=== PATIENT | female | born 1975 | race Caucasian/White ===

== ENCOUNTER 2016-12-28 02:43 | Emergency (ER) | payer OTHER ==
[~2016-12-28] VITALS: Ht 167.6 cm; Wt 68.2 kg
[~2016-12-28 02:43] MED LIST: BENZ0.5T6 PO; LITH300CRT PO; RISP3 PO; VITAD1000 PO
[2016-12-28 02:45] VITALS: BP 105/75
== END 2016-12-28 03:54 | disposition left against medical advice (07) ==
LOC: EMS 02:44
DX: Z76.0 Encounter for issue of repeat prescription (principal); Z53.21 Procedure and treatment not carried out due to patient leaving prior to being seen by health care provider

== ENCOUNTER 2017-01-15 15:52 | Emergency (ER) | payer OTHER ==
[~2017-01-15] VITALS: Ht 167.6 cm; Wt 63.6 kg
[2017-01-15 16:10] VITALS: BP 109/64
== END 2017-01-15 18:27 | disposition left against medical advice (07) ==
LOC: EMS 15:55
DX: Z76.0 Encounter for issue of repeat prescription (principal); F17.210 Nicotine dependence, cigarettes, uncomplicated; Z53.21 Procedure and treatment not carried out due to patient leaving prior to being seen by health care provider

== ENCOUNTER 2017-11-04 21:40 | Emergency (ER) | payer OTHER ==
[~2017-11-04 21:40] MED LIST changes: -LITH300CRT PO; -VITAD1000 PO
== END 2017-11-04 22:53 | disposition left against medical advice (07) ==
LOC: EMS 21:44
DX: Z53.21 Procedure and treatment not carried out due to patient leaving prior to being seen by health care provider (principal)

== ENCOUNTER 2017-11-05 04:17 | Emergency (ER) | payer OTHER ==
[~2017-11-05] VITALS: Ht 165.1 cm; Wt 63.6 kg
[2017-11-05 04:19] VITALS: BP 114/77
[2017-11-05 05:07] LABS: BASOPHILS # (AUTO) 0.06 K/uL (0.00-0.20); BASOPHILS % (AUTO) 0.7 % (0.0-2.0); EOSINOPHILS # (AUTO) 0.12 K/uL (0.00-0.70); EOSINOPHILS % (AUTO) 1.37 % (1.0-6.0); HEMATOCRIT 38.8 % (36-46); HEMOGLOBIN 12.8 g/dL (12.0-16.0); LYMPHOCYTES # (AUTO) 3.1 K/uL (1.0-4.8); LYMPHOCYTES % (AUTO) 36.1 % (22.0-44.0); MEAN CORPUSCULAR VOLUME 97 fL (80-100); MONOCYTES # (AUTO) 0.6 K/uL (0.1-1.0); NEUTROPHILS # (AUTO) 4.6 K/uL (1.8-7.7); NEUTROPHILS % (AUTO) 54.8 % (40.0-70.0); PLATELET COUNT (AUTO) 308 K/uL (150-450); RED CELL DISTRIBUTION WIDTH 13.3 % (11.5-14.5)
[2017-11-05 05:21] LABS: ANION GAP 6 mmol/L (8-16); CALCIUM, TOTAL 9.3 mg/dL (8.8-10.5); CARBON DIOXIDE 33 mmol/L (22-29); CHLORIDE 104 mmol/L (98-107); GLOMERULAR FILTR. RATE CALC > 60 mL/min (>60); GLUCOSE,RANDOM 102 mg/dL (70-110); POTASSIUM 3.7 mmol/L (3.5-5.1); SODIUM SERUM 143 mmol/L (136-145); UREA NITROGEN, BLOOD 10 mg/dL (7-18)
[2017-11-05 05:26] LABS: ALANINE AMINOTRANSFERASE 24 U/L (12-78); ALBUMIN 3.4 g/dL (3.4-5.0); ALKALINE PHOSPHATASE 64 U/L (46-116); ASPARTATE AMINOTRANSFERASE 16 U/L (15-37); BILIRUBIN,TOTAL 0.3 mg/dL (0.1-1.0); TOTAL PROTEIN, SERUM 6.7 g/dL (6.4-8.2)
== END 2017-11-05 10:02 | disposition left against medical advice (07) ==
LOC: EMS 04:18
DX: Z53.21 Procedure and treatment not carried out due to patient leaving prior to being seen by health care provider (principal)
CPT/HCPCS: 36415; 80053; 85025; G0480

== ENCOUNTER 2017-11-06 18:31 | Emergency (ER) | payer OTHER | END 2017-11-06 19:14 | disposition left against medical advice (07) | LOC: EMS 18:33 | DX: Z53.21 Procedure and treatment not carried out due to patient leaving prior to being seen by health care provider (principal) ==

== ENCOUNTER 2017-11-09 23:16 | Emergency (ER) | payer OTHER ==
[~2017-11-09] VITALS: Ht 172.7 cm; Wt 72.7 kg
[2017-11-09 23:26] VITALS: BP 135/78
== END 2017-11-10 00:25 | disposition home or self-care (01) ==
LOC: EMS 23:17
DX: M79.671 Pain in right foot (principal); M79.672 Pain in left foot; F25.9 Schizoaffective disorder, unspecified; F31.9 Bipolar disorder, unspecified; F17.210 Nicotine dependence, cigarettes, uncomplicated; Z59.0 Homelessness; Z76.0 Encounter for issue of repeat prescription; Z88.8 Allergy status to other drugs, medicaments and biological substances
CPT/HCPCS: 99281; 99406

== ENCOUNTER 2017-12-04 16:15 | Emergency (ER) | payer OTHER ==
[~2017-12-04] VITALS: Ht 167.6 cm; Wt 63.6 kg
[2017-12-04 17:10] VITALS: BP 111/70
== END 2017-12-04 17:43 | disposition home or self-care (01) ==
LOC: EMS 16:35
DX: Z76.0 Encounter for issue of repeat prescription (principal); F31.9 Bipolar disorder, unspecified; F20.9 Schizophrenia, unspecified; F17.210 Nicotine dependence, cigarettes, uncomplicated; Z88.8 Allergy status to other drugs, medicaments and biological substances; Z59.0 Homelessness
CPT/HCPCS: 99283

== ENCOUNTER 2017-12-15 15:19 | Emergency (ER) | payer OTHER ==
[~2017-12-15] VITALS: Ht 165.1 cm; Wt 63.6 kg
[2017-12-15] MEDS ORDERED: BENZ1TAB10 PO (16:04)
[2017-12-15 16:29] LABS: EOSINOPHILS % (AUTO) 0.8 % (1.0-6.0); HEMATOCRIT 31.7 % (36-46); HEMOGLOBIN 10.6 g/dL (12.0-16.0); LYMPHOCYTES % (AUTO) 25.2 % (22.0-44.0); MEAN CORPUSCULAR HEMOGLOBIN 30.5 pg (26.0-34.0); MEAN CORPUSCULAR HGB CONC 33.5 G/dL (31.0-37.0); MEAN CORPUSCULAR VOLUME 91 fL (80-100); MONOCYTES # (AUTO) 0.5 K/uL (0.1-1.0); NEUTROPHILS # (AUTO) 5.3 K/uL (1.8-7.7); PLATELET COUNT (AUTO) 279 K/uL (150-450); RED BLOOD CELL COUNT(AUTO) 3.49 MIL/uL (4.00-5.20); RED CELL DISTRIBUTION WIDTH 14.1 % (11.5-14.5)
[2017-12-15 16:37] LABS: ANION GAP 5 mmol/L (8-16); CALCIUM, TOTAL 8.8 mg/dL (8.8-10.5); CARBON DIOXIDE 31 mmol/L (22-29); CHLORIDE 103 mmol/L (98-107); GLOMERULAR FILTR. RATE CALC > 60 mL/min (>60); GLUCOSE,RANDOM 108 mg/dL (70-110); POTASSIUM 4.1 mmol/L (3.5-5.1); SODIUM SERUM 139 mmol/L (136-145); UREA NITROGEN, BLOOD 13 mg/dL (7-18)
[2017-12-15 19:21] VITALS: BP 113/71
== END 2017-12-15 19:23 | disposition home or self-care (01) ==
LOC: EMS 15:22
DX: D64.9 Anemia, unspecified (principal); F20.9 Schizophrenia, unspecified; F32.9 Major depressive disorder, single episode, unspecified; F17.210 Nicotine dependence, cigarettes, uncomplicated; Z59.0 Homelessness
CPT/HCPCS: 99284

== ENCOUNTER 2017-12-19 13:16 | Emergency (ER) | payer OTHER ==
[~2017-12-19] VITALS: Ht 165.1 cm; Wt 63.6 kg
[~2017-12-19 13:16] MED LIST changes: -BENZ0.5T6 PO; +BENZ1TAB10 PO
[2017-12-19] MEDS ORDERED: BENZTROPINE MESYLATE 1 MG TABLET PO ONE (17:30)
[2017-12-19] MEDS ORDERED: RisperiDONE 1 MG TABLET PO ONE (17:30)
[2017-12-19 17:51] VITALS: BP 110/68
== END 2017-12-19 17:53 | disposition home or self-care (01) ==
LOC: EMS 13:18
DX: F20.9 Schizophrenia, unspecified (principal); F31.9 Bipolar disorder, unspecified; F17.210 Nicotine dependence, cigarettes, uncomplicated; Z76.0 Encounter for issue of repeat prescription; Z88.8 Allergy status to other drugs, medicaments and biological substances; Z59.0 Homelessness
CPT/HCPCS: 99284; 99406

== ENCOUNTER 2017-12-24 23:52 | Emergency (ER) | payer OTHER ==
[~2017-12-24] VITALS: Ht 165.1 cm; Wt 63.0 kg
[2017-12-25 00:58] LABS: HEMATOCRIT 33.3 % (36-46); HEMOGLOBIN 11.1 g/dL (12.0-16.0); LYMPHOCYTES # (AUTO) 2.1 K/uL (1.0-4.8); LYMPHOCYTES % (AUTO) 25.3 % (22.0-44.0); MEAN CORPUSCULAR HEMOGLOBIN 29.9 pg (26.0-34.0); MEAN CORPUSCULAR HGB CONC 33.3 G/dL (31.0-37.0); MEAN CORPUSCULAR VOLUME 90 fL (80-100); MONOCYTES # (AUTO) 0.7 K/uL (0.1-1.0); MONOCYTES % (AUTO) 8.5 % (2.0-9.0); NEUTROPHILS # (AUTO) 5.3 K/uL (1.8-7.7); NEUTROPHILS % (AUTO) 64.2 % (40.0-70.0); PLATELET COUNT (AUTO) 384 K/uL (150-450); RED BLOOD CELL COUNT(AUTO) 3.71 MIL/uL (4.00-5.20)
[2017-12-25 01:15] LABS: ANION GAP 7 mmol/L (8-16); CALCIUM, TOTAL 9.7 mg/dL (8.8-10.5); CARBON DIOXIDE 30 mmol/L (22-29); CHLORIDE 104 mmol/L (98-107); CREATININE 0.91 mg/dL (0.60-1.30); GLOMERULAR FILTR. RATE CALC > 60 mL/min (>60); GLUCOSE,RANDOM 88 mg/dL (70-110); POTASSIUM 3.8 mmol/L (3.5-5.1); SODIUM SERUM 141 mmol/L (136-145); UREA NITROGEN, BLOOD 15 mg/dL (7-18)
[2017-12-25 01:26] LABS: ALANINE AMINOTRANSFERASE 26 U/L (12-78); ALKALINE PHOSPHATASE 56 U/L (46-116); ASPARTATE AMINOTRANSFERASE 30 U/L (15-37); BILIRUBIN,TOTAL 0.5 mg/dL (0.1-1.0); TOTAL PROTEIN, SERUM 7.5 g/dL (6.4-8.2)
[2017-12-25] MEDS ORDERED: LORazepam 2 MG TABLET PO ONE (01:45)
[2017-12-25] MEDS ORDERED: RisperiDONE 1 MG TABLET PO ONE (01:45)
[2017-12-25 04:00] VITALS: BP 127/77
== END 2017-12-25 04:30 | disposition home or self-care (01) ==
LOC: EMS 23:53
DX: F20.0 Paranoid schizophrenia (principal); F32.9 Major depressive disorder, single episode, unspecified; I10 Essential (primary) hypertension; F17.210 Nicotine dependence, cigarettes, uncomplicated; Z59.0 Homelessness; Z79.899 Other long term (current) drug therapy
CPT/HCPCS: 36415; 80053; 84703; 85025; 99284; 99406; G0480

== ENCOUNTER 2018-01-04 20:25 | Emergency (ER) | payer OTHER | END 2018-01-04 21:00 | disposition left against medical advice (07) | LOC: EMS 20:26 | DX: Z53.21 Procedure and treatment not carried out due to patient leaving prior to being seen by health care provider (principal) ==

== ENCOUNTER 2018-01-05 20:42 | Emergency (ER) | payer OTHER ==
[~2018-01-05] VITALS: Ht 167.6 cm; Wt 63.6 kg
[2018-01-05 21:13] LABS: EOSINOPHILS % (AUTO) 2.2 % (1.0-6.0); HEMATOCRIT 33.9 % (36-46); HEMOGLOBIN 11.1 g/dL (12.0-16.0); LYMPHOCYTES # (AUTO) 2.2 K/uL (1.0-4.8); LYMPHOCYTES % (AUTO) 21.8 % (22.0-44.0); MEAN CORPUSCULAR HEMOGLOBIN 28.9 pg (26.0-34.0); MEAN CORPUSCULAR HGB CONC 32.7 G/dL (31.0-37.0); MEAN CORPUSCULAR VOLUME 89 fL (80-100); MONOCYTES # (AUTO) 0.8 K/uL (0.1-1.0); MONOCYTES % (AUTO) 8.2 % (2.0-9.0); NEUTROPHILS # (AUTO) 6.7 K/uL (1.8-7.7); NEUTROPHILS % (AUTO) 66.8 % (40.0-70.0); PLATELET COUNT (AUTO) 389 K/uL (150-450); RED BLOOD CELL COUNT(AUTO) 3.82 MIL/uL (4.00-5.20); RED CELL DISTRIBUTION WIDTH 14.3 % (11.5-14.5)
[2018-01-05 21:23] LABS: ANION GAP 6 mmol/L (8-16); CALCIUM, TOTAL 9.7 mg/dL (8.8-10.5); CARBON DIOXIDE 31 mmol/L (22-29); CHLORIDE 102 mmol/L (98-107); CREATININE 0.68 mg/dL (0.60-1.30); GLOMERULAR FILTR. RATE CALC > 60 mL/min (>60); GLUCOSE,RANDOM 96 mg/dL (70-110); POTASSIUM 4.1 mmol/L (3.5-5.1); SODIUM SERUM 139 mmol/L (136-145); UREA NITROGEN, BLOOD 11 mg/dL (7-18)
[2018-01-05 21:30] LABS: ALANINE AMINOTRANSFERASE 36 U/L (12-78); ALBUMIN 3.2 g/dL (3.4-5.0); ALKALINE PHOSPHATASE 84 U/L (46-116); ASPARTATE AMINOTRANSFERASE 25 U/L (15-37); BILIRUBIN,TOTAL 0.2 mg/dL (0.1-1.0); TOTAL PROTEIN, SERUM 7.4 g/dL (6.4-8.2)
[2018-01-06] MEDS ORDERED: BENZTROPINE MESYLATE 2 MG TABLET PO ONE (00:30)
[2018-01-06] MEDS ORDERED: RisperiDONE 1 MG TABLET PO ONE (00:30)
[2018-01-06 00:45] VITALS: BP 111/66
== END 2018-01-06 01:34 | disposition home or self-care (01) ==
LOC: EMS 20:43
DX: F41.9 Anxiety disorder, unspecified (principal); F20.0 Paranoid schizophrenia; F17.210 Nicotine dependence, cigarettes, uncomplicated; F31.9 Bipolar disorder, unspecified; F20.9 Schizophrenia, unspecified; Z59.0 Homelessness; Z88.8 Allergy status to other drugs, medicaments and biological substances
CPT/HCPCS: 36415; 80053; 85025; 99284; 99406; G0480

== ENCOUNTER 2018-01-06 07:43 | Emergency (ER) | payer OTHER ==
[~2018-01-06] VITALS: Ht 165.1 cm; Wt 63.6 kg
[2018-01-06 07:45] VITALS: BP 99/61
== END 2018-01-06 08:13 | disposition left against medical advice (07) ==
LOC: EMS 07:46
DX: Z00.8 Encounter for other general examination (principal); F31.9 Bipolar disorder, unspecified; F20.9 Schizophrenia, unspecified; F17.210 Nicotine dependence, cigarettes, uncomplicated; Z53.21 Procedure and treatment not carried out due to patient leaving prior to being seen by health care provider

== ENCOUNTER 2018-02-02 21:47 | Emergency (ER) | payer OTHER ==
[~2018-02-02] VITALS: Ht 165.1 cm; Wt 63.6 kg
[2018-02-02] MEDS ORDERED: ACETAMINOPHEN 500 MG TABLET PO ONE (22:15)
[2018-02-02] MEDS ORDERED: RISP0.252 PO (22:38)
[2018-02-02] MEDS ORDERED: RISP.5 PO (22:39)
[2018-02-02] MEDS ORDERED: BENZ1TAB10 PO (22:39)
[2018-02-02] MEDS ORDERED: RISP1 PO (22:46)
[2018-02-02] MEDS ORDERED: BENZ0.5T44 PO (22:46)
[2018-02-02 22:52] VITALS: BP 100/60
== END 2018-02-02 22:54 | disposition home or self-care (01) ==
LOC: EMS 21:48
DX: R51 Headache (principal); F20.9 Schizophrenia, unspecified; F17.210 Nicotine dependence, cigarettes, uncomplicated; F31.9 Bipolar disorder, unspecified; Z76.0 Encounter for issue of repeat prescription; Z59.0 Homelessness; Z88.8 Allergy status to other drugs, medicaments and biological substances
CPT/HCPCS: 99283

== ENCOUNTER 2018-02-09 03:03 | Emergency (ER) | payer OTHER ==
[~2018-02-09] VITALS: Ht 165.1 cm; Wt 64.0 kg
[~2018-02-09 03:03] MED LIST changes: +BENZ0.5T44 PO; -BENZ1TAB10 PO; +RISP1 PO; -RISP3 PO
[2018-02-09 03:11] VITALS: BP 109/67
[2018-02-09] MEDS ORDERED: RisperiDONE 1 MG TABLET PO ONE (05:00)
== END 2018-02-09 05:36 | disposition home or self-care (01) ==
LOC: EMS 03:04
DX: F20.0 Paranoid schizophrenia (principal); F15.10 Other stimulant abuse, uncomplicated; F17.210 Nicotine dependence, cigarettes, uncomplicated; F31.9 Bipolar disorder, unspecified; F20.9 Schizophrenia, unspecified; Z59.0 Homelessness; Z88.8 Allergy status to other drugs, medicaments and biological substances
CPT/HCPCS: 99284; 99406

== ENCOUNTER 2018-02-10 22:33 | Emergency (ER) | payer OTHER ==
[~2018-02-10] VITALS: Ht 165.1 cm; Wt 64.6 kg
[2018-02-10 22:43] VITALS: BP 118/60
== END 2018-02-11 00:30 | disposition left against medical advice (07) ==
LOC: EMS 22:34
DX: F29 Unspecified psychosis not due to a substance or known physiological condition (principal); F31.9 Bipolar disorder, unspecified; F20.9 Schizophrenia, unspecified; F17.210 Nicotine dependence, cigarettes, uncomplicated; Z53.21 Procedure and treatment not carried out due to patient leaving prior to being seen by health care provider

== ENCOUNTER 2018-02-12 02:25 | Emergency (ER) | payer OTHER ==
[~2018-02-12] VITALS: Ht 172.7 cm; Wt 59.1 kg
[2018-02-12 03:14] VITALS: BP 121/86
== END 2018-02-12 03:53 | disposition home or self-care (01) ==
LOC: EMS 02:26
DX: F20.0 Paranoid schizophrenia (principal); Z59.0 Homelessness; F17.210 Nicotine dependence, cigarettes, uncomplicated; F32.9 Major depressive disorder, single episode, unspecified; Z76.0 Encounter for issue of repeat prescription
CPT/HCPCS: 99283; 99406

== ENCOUNTER 2018-02-16 04:01 | Emergency (ER) | payer OTHER ==
[~2018-02-16] VITALS: Ht 172.7 cm; Wt 63.6 kg
[2018-02-16 04:48] VITALS: BP 126/89
== END 2018-02-16 05:24 | disposition home or self-care (01) ==
LOC: EMS 04:04
DX: F20.9 Schizophrenia, unspecified (principal); F31.9 Bipolar disorder, unspecified; F17.210 Nicotine dependence, cigarettes, uncomplicated; Z59.0 Homelessness; Z88.8 Allergy status to other drugs, medicaments and biological substances
CPT/HCPCS: 99284

== ENCOUNTER 2018-02-17 02:59 | Emergency (ER) | payer OTHER ==
[~2018-02-17] VITALS: Ht 167.6 cm; Wt 61.4 kg
[2018-02-17 04:25] LABS: AMPHET/METH SCREEN,URINE POSITIVE (NEGATIVE); BARBITURATE SCREEN, URINE NEGATIVE (NEGATIVE); BENZODIAZEPINES SCREEN,URINE NEGATIVE (NEGATIVE); CANNABINOID SCREEN,URINE NEGATIVE (NEGATIVE); COCAINE SCREEN,URINE NEGATIVE (NEGATIVE); METHADONE SCREEN, URINE NEGATIVE (NEGATIVE); OPIATE SCREEN,URINE NEGATIVE (NEGATIVE)
[2018-02-17 04:28] LABS: PHENCYCLIDINE SCREEN,URINE NEGATIVE (NEGATIVE)
[2018-02-17 05:04] VITALS: BP 114/79
== END 2018-02-17 05:18 | disposition home or self-care (01) ==
LOC: EMS 03:00
DX: F20.0 Paranoid schizophrenia (principal); F32.9 Major depressive disorder, single episode, unspecified; F15.10 Other stimulant abuse, uncomplicated; F17.210 Nicotine dependence, cigarettes, uncomplicated; Z59.0 Homelessness; Z88.8 Allergy status to other drugs, medicaments and biological substances
CPT/HCPCS: 99284; 99406

== ENCOUNTER 2018-02-21 01:24 | Emergency (ER) | payer OTHER ==
[~2018-02-21] VITALS: Ht 167.6 cm; Wt 63.6 kg
[2018-02-21 01:29] VITALS: BP 104/75
== END 2018-02-21 02:18 | disposition left against medical advice (07) ==
LOC: EMS 01:26
DX: M53.9 Dorsopathy, unspecified (principal); F17.210 Nicotine dependence, cigarettes, uncomplicated; Z59.0 Homelessness; Z88.8 Allergy status to other drugs, medicaments and biological substances; Z53.21 Procedure and treatment not carried out due to patient leaving prior to being seen by health care provider

== ENCOUNTER 2018-02-22 02:02 | Emergency (ER) | payer OTHER ==
[~2018-02-22] VITALS: Ht 165.1 cm; Wt 68.2 kg
[2018-02-22 04:36] VITALS: BP 116/86
== END 2018-02-22 04:36 | disposition home or self-care (01) ==
LOC: EMS 02:03
DX: F25.9 Schizoaffective disorder, unspecified (principal); F31.9 Bipolar disorder, unspecified; F17.210 Nicotine dependence, cigarettes, uncomplicated
CPT/HCPCS: 99283

== ENCOUNTER 2018-03-01 21:19 | Emergency (ER) | payer OTHER ==
[~2018-03-01] VITALS: Ht 165.1 cm; Wt 68.2 kg
[2018-03-01 21:27] VITALS: BP 127/68
== END 2018-03-01 22:12 | disposition left against medical advice (07) ==
LOC: EMS 21:20
DX: Z00.8 Encounter for other general examination (principal); F31.9 Bipolar disorder, unspecified; F20.9 Schizophrenia, unspecified; F17.210 Nicotine dependence, cigarettes, uncomplicated; Z88.8 Allergy status to other drugs, medicaments and biological substances; Z53.21 Procedure and treatment not carried out due to patient leaving prior to being seen by health care provider

== ENCOUNTER 2018-03-07 02:15 | Emergency (ER) | payer OTHER | END 2018-03-07 02:58 | disposition left against medical advice (07) | LOC: EMS 02:16 | DX: Z00.8 Encounter for other general examination (principal); Z53.21 Procedure and treatment not carried out due to patient leaving prior to being seen by health care provider ==

== ENCOUNTER 2018-03-08 03:46 | Emergency (ER) | payer OTHER ==
[~2018-03-08] VITALS: Ht 172.7 cm; Wt 63.6 kg
[2018-03-08 05:13] VITALS: BP 132/76
== END 2018-03-08 05:56 | disposition home or self-care (01) ==
LOC: EMS 03:46
DX: F20.0 Paranoid schizophrenia (principal); F31.9 Bipolar disorder, unspecified; F17.210 Nicotine dependence, cigarettes, uncomplicated; Z76.0 Encounter for issue of repeat prescription; Z88.8 Allergy status to other drugs, medicaments and biological substances
CPT/HCPCS: 99283

== ENCOUNTER 2018-03-26 05:18 | Emergency (ER) | payer OTHER ==
[~2018-03-26] VITALS: Ht 165.1 cm; Wt 59.1 kg
[2018-03-26 05:21] VITALS: BP 140/80
== END 2018-03-26 06:04 | disposition left against medical advice (07) ==
LOC: EMS 05:19
DX: Z76.0 Encounter for issue of repeat prescription (principal); Z53.21 Procedure and treatment not carried out due to patient leaving prior to being seen by health care provider

== ENCOUNTER 2018-03-27 00:23 | Emergency (ER) | payer OTHER ==
[~2018-03-27] VITALS: Ht 165.1 cm; Wt 54.5 kg
[2018-03-27 01:30] VITALS: BP 125/61
== END 2018-03-27 02:11 | disposition home or self-care (01) ==
LOC: EMS 00:25
DX: F20.0 Paranoid schizophrenia (principal); F31.9 Bipolar disorder, unspecified; F17.210 Nicotine dependence, cigarettes, uncomplicated; Z76.0 Encounter for issue of repeat prescription; Z88.8 Allergy status to other drugs, medicaments and biological substances
CPT/HCPCS: 99283

== ENCOUNTER 2018-04-10 13:59 | Emergency (ER) | payer OTHER ==
[~2018-04-10] VITALS: Ht 162.6 cm; Wt 63.6 kg
[2018-04-10 15:40] VITALS: BP 98/65
== END 2018-04-10 16:07 | disposition home or self-care (01) ==
LOC: EMS 14:00
DX: F29 Unspecified psychosis not due to a substance or known physiological condition (principal); F17.210 Nicotine dependence, cigarettes, uncomplicated; F31.9 Bipolar disorder, unspecified; F20.9 Schizophrenia, unspecified; Z76.0 Encounter for issue of repeat prescription; Z88.8 Allergy status to other drugs, medicaments and biological substances
CPT/HCPCS: 99283

== ENCOUNTER 2018-04-19 22:56 | Emergency (ER) | payer OTHER | END 2018-04-20 00:22 | disposition left against medical advice (07) | LOC: EMS 22:57 | DX: Z53.21 Procedure and treatment not carried out due to patient leaving prior to being seen by health care provider (principal) ==

== ENCOUNTER 2018-05-07 12:59 | Emergency (ER) | payer OTHER | END 2018-05-07 14:08 | disposition left against medical advice (07) | LOC: EMS 13:01 | DX: Z53.21 Procedure and treatment not carried out due to patient leaving prior to being seen by health care provider (principal) ==

== ENCOUNTER 2018-05-08 01:37 | Emergency (ER) | payer OTHER ==
[~2018-05-08] VITALS: Ht 167.6 cm; Wt 59.1 kg
[2018-05-08 01:41] VITALS: BP 122/72
== END 2018-05-08 04:30 | disposition left against medical advice (07) ==
LOC: EMS 01:39
DX: Z76.0 Encounter for issue of repeat prescription (principal); Z53.21 Procedure and treatment not carried out due to patient leaving prior to being seen by health care provider

== ENCOUNTER 2018-05-08 07:30 | Emergency (ER) | payer OTHER ==
[~2018-05-08] VITALS: Ht 165.1 cm; Wt 59.1 kg
[2018-05-08 12:05] VITALS: BP 128/70
== END 2018-05-08 12:25 | disposition home or self-care (01) ==
LOC: EMS 07:32
DX: F25.9 Schizoaffective disorder, unspecified (principal); F31.9 Bipolar disorder, unspecified; F17.210 Nicotine dependence, cigarettes, uncomplicated; Z76.0 Encounter for issue of repeat prescription; Z88.8 Allergy status to other drugs, medicaments and biological substances
CPT/HCPCS: 99283

== ENCOUNTER 2018-05-27 03:17 | Emergency (ER) | payer OTHER ==
[~2018-05-27] VITALS: Ht 165.1 cm; Wt 54.0 kg
[2018-05-27 03:30] VITALS: BP 101/67
== END 2018-05-27 04:14 | disposition left against medical advice (07) ==
LOC: EMS 03:18
DX: F22 Delusional disorders (principal); F31.9 Bipolar disorder, unspecified; F20.9 Schizophrenia, unspecified; F17.210 Nicotine dependence, cigarettes, uncomplicated; Z53.21 Procedure and treatment not carried out due to patient leaving prior to being seen by health care provider

== ENCOUNTER 2018-06-03 03:22 | Emergency (ER) | payer OTHER ==
[~2018-06-03] VITALS: Ht 172.7 cm; Wt 81.8 kg
[2018-06-03 03:24] VITALS: BP 138/64
[2018-06-03] MEDS: BENZTROPINE MESYLATE 0.5 MG TABLET PO ONE ×2 (04:47→04:49)
[2018-06-03] MEDS: RisperiDONE 1 MG TABLET PO ONE ×2 (04:47→04:49)
== END 2018-06-03 04:54 | disposition home or self-care (01) ==
LOC: EMS 03:23
DX: F25.9 Schizoaffective disorder, unspecified (principal); F31.9 Bipolar disorder, unspecified; F15.10 Other stimulant abuse, uncomplicated; F17.210 Nicotine dependence, cigarettes, uncomplicated; Z88.8 Allergy status to other drugs, medicaments and biological substances; Z59.0 Homelessness
CPT/HCPCS: 99284; 99406

== ENCOUNTER 2018-06-07 06:43 | Emergency (ER) | payer OTHER | END 2018-06-07 06:50 | disposition left against medical advice (07) | LOC: EMS 06:44 | DX: Z76.0 Encounter for issue of repeat prescription (principal); Z53.21 Procedure and treatment not carried out due to patient leaving prior to being seen by health care provider ==

== ENCOUNTER 2018-06-17 07:11 | Emergency (ER) | payer OTHER | END 2018-06-17 07:39 | disposition left against medical advice (07) | LOC: EMS 07:13 | DX: Z00.00 Encounter for general adult medical examination without abnormal findings (principal); Z53.21 Procedure and treatment not carried out due to patient leaving prior to being seen by health care provider ==

== ENCOUNTER 2018-07-13 18:04 | Emergency (ER) | payer OTHER | END 2018-07-13 18:13 | disposition left against medical advice (07) | LOC: EMS 18:05 | DX: Z00.00 Encounter for general adult medical examination without abnormal findings (principal); Z53.21 Procedure and treatment not carried out due to patient leaving prior to being seen by health care provider ==

== ENCOUNTER 2018-07-29 22:37 | Emergency (ER) | payer OTHER ==
[~2018-07-29] VITALS: Ht 172.7 cm; Wt 79.0 kg
[2018-07-30 03:56] VITALS: BP 114/67
== END 2018-07-30 04:41 | disposition left against medical advice (07) ==
LOC: EMS 22:38
DX: M79.646 Pain in unspecified finger(s) (principal); Z53.21 Procedure and treatment not carried out due to patient leaving prior to being seen by health care provider

== ENCOUNTER 2018-08-01 18:47 | Emergency (ER) | payer OTHER | END 2018-08-01 19:03 | disposition left against medical advice (07) | LOC: EMS 18:48 | DX: R50.9 Fever, unspecified (principal); Z53.21 Procedure and treatment not carried out due to patient leaving prior to being seen by health care provider ==

== ENCOUNTER 2018-08-03 21:53 | Emergency (ER) | payer OTHER ==
[~2018-08-03] VITALS: Ht 172.7 cm; Wt 79.0 kg
[2018-08-03 22:27] LABS: AMPHET/METH SCREEN,URINE POSITIVE (NEGATIVE); BARBITURATE SCREEN, URINE NEGATIVE (NEGATIVE); BENZODIAZEPINES SCREEN,URINE NEGATIVE (NEGATIVE); CANNABINOID SCREEN,URINE NEGATIVE (NEGATIVE); COCAINE SCREEN,URINE NEGATIVE (NEGATIVE); METHADONE SCREEN, URINE NEGATIVE (NEGATIVE); OPIATE SCREEN,URINE NEGATIVE (NEGATIVE); PHENCYCLIDINE SCREEN,URINE NEGATIVE (NEGATIVE)
[2018-08-03] MEDS ORDERED: HALOPERIDOL LACTATE 5 MG/ML VIAL ONE (22:56)
[2018-08-03] MEDS ORDERED: DiphenhydrAMINE HCL 50 MG/ML VIAL IM ONE (23:00)
[2018-08-03] MEDS ORDERED: LORazepam 2 MG/ML VIAL IM ONE (23:00)
[2018-08-03] MEDS ORDERED: HALOPERIDOL LACTATE 5 MG/ML VIAL IM ONE (23:00)
[2018-08-03 23:42] LABS: BASOPHILS % (AUTO) 0.6 % (0.0-2.0); EOSINOPHILS % (AUTO) 0.4 % (1.0-6.0); HEMATOCRIT 35.4 % (36-46); LYMPHOCYTES % (AUTO) 19.2 % (22.0-44.0); MEAN CORPUSCULAR HEMOGLOBIN 31.1 pg (26.0-34.0); MEAN CORPUSCULAR HGB CONC 33.9 G/dL (31.0-37.0); MEAN CORPUSCULAR VOLUME 92 fL (80-100); MONOCYTES # (AUTO) 0.3 K/uL (0.1-1.0); MONOCYTES % (AUTO) 6.6 % (2.0-9.0); NEUTROPHILS # (AUTO) 3.9 K/uL (1.8-7.7); NEUTROPHILS % (AUTO) 73.2 % (40.0-70.0); PLATELET COUNT (AUTO) 251 K/uL (150-450); RED BLOOD CELL COUNT(AUTO) 3.86 MIL/uL (4.00-5.20); RED CELL DISTRIBUTION WIDTH 14.6 % (11.5-14.5)
[2018-08-04 00:04] LABS: ANION GAP 7 mmol/L (8-16); CARBON DIOXIDE 29 mmol/L (22-29); CHLORIDE 103 mmol/L (98-107); CREATININE 0.78 mg/dL (0.60-1.30); GLOMERULAR FILTR. RATE CALC > 60 mL/min (>60); GLUCOSE,RANDOM 80 mg/dL (70-110); POTASSIUM 3.6 mmol/L (3.5-5.1); SODIUM SERUM 139 mmol/L (136-145); UREA NITROGEN, BLOOD 15 mg/dL (7-18)
[2018-08-04 00:16] LABS: ALANINE AMINOTRANSFERASE 24 U/L (12-78); ALBUMIN 3.1 g/dL (3.4-5.0); ALKALINE PHOSPHATASE 57 U/L (46-116); ASPARTATE AMINOTRANSFERASE 28 U/L (15-37); BILIRUBIN,TOTAL 0.2 mg/dL (0.1-1.0); HCG,QUANTITATIVE < 1 mIU/mL (0-6); TOTAL PROTEIN, SERUM 6.8 g/dL (6.4-8.2)
[2018-08-04 08:08] VITALS: BP 120/64
== END 2018-08-04 08:10 | disposition home or self-care (01) ==
LOC: EMS 21:55
DX: F15.159 Other stimulant abuse with stimulant-induced psychotic disorder, unspecified (principal); Z59.0 Homelessness; F17.210 Nicotine dependence, cigarettes, uncomplicated; F31.9 Bipolar disorder, unspecified; F20.9 Schizophrenia, unspecified; Z79.899 Other long term (current) drug therapy; Z88.8 Allergy status to other drugs, medicaments and biological substances
CPT/HCPCS: 36415; 80053; 80307; 84702; 84703; 85025; 96372; 99285; G0480; J1200; J1630; J2060

== ENCOUNTER 2018-08-12 18:05 | Emergency (ER) | payer OTHER ==
[~2018-08-12] VITALS: Ht 167.6 cm; Wt 60.0 kg
[2018-08-12] MEDS ORDERED: DiphenhydrAMINE HCL 50 MG/ML VIAL IM ONE (18:15)
[2018-08-12] MEDS ORDERED: LORazepam 2 MG/ML VIAL IM ONE (18:15)
[2018-08-12] MEDS ORDERED: HALOPERIDOL LACTATE 5 MG/ML VIAL IM ONE (18:15)
[2018-08-12 18:41] LABS: BASOPHILS % (AUTO) 0.9 % (0.0-2.0); HEMATOCRIT 34.8 % (36-46); HEMOGLOBIN 11.9 g/dL (12.0-16.0); LYMPHOCYTES # (AUTO) 2.5 K/uL (1.0-4.8); LYMPHOCYTES % (AUTO) 31.2 % (22.0-44.0); MEAN CORPUSCULAR HEMOGLOBIN 31.6 pg (26.0-34.0); MEAN CORPUSCULAR HGB CONC 34.2 G/dL (31.0-37.0); MEAN CORPUSCULAR VOLUME 93 fL (80-100); MONOCYTES # (AUTO) 0.6 K/uL (0.1-1.0); MONOCYTES % (AUTO) 7.7 % (2.0-9.0); NEUTROPHILS # (AUTO) 4.7 K/uL (1.8-7.7); NEUTROPHILS % (AUTO) 59.2 % (40.0-70.0); PLATELET COUNT (AUTO) 357 K/uL (150-450); RED BLOOD CELL COUNT(AUTO) 3.75 MIL/uL (4.00-5.20); RED CELL DISTRIBUTION WIDTH 14.9 % (11.5-14.5)
[2018-08-12 18:54] LABS: ANION GAP 3 mmol/L (8-16); CARBON DIOXIDE 31 mmol/L (22-29); CHLORIDE 107 mmol/L (98-107); CREATININE 1.09 mg/dL (0.60-1.30); GLOMERULAR FILTR. RATE CALC 55 mL/min (>60); GLUCOSE,RANDOM 112 mg/dL (70-110); POTASSIUM 3.6 mmol/L (3.5-5.1); SODIUM SERUM 141 mmol/L (136-145); UREA NITROGEN, BLOOD 15 mg/dL (7-18)
[2018-08-12 18:59] LABS: ALANINE AMINOTRANSFERASE 21 U/L (12-78); ALBUMIN 3.2 g/dL (3.4-5.0); ALKALINE PHOSPHATASE 56 U/L (46-116); ASPARTATE AMINOTRANSFERASE 18 U/L (15-37); BILIRUBIN,TOTAL 0.2 mg/dL (0.1-1.0); TOTAL PROTEIN, SERUM 6.6 g/dL (6.4-8.2)
[2018-08-12 20:24] LABS: HCG,QUANTITATIVE < 1 mIU/mL (0-6)
[2018-08-13 05:03] VITALS: BP 112/67
== END 2018-08-13 05:07 | disposition home or self-care (01) ==
LOC: EMS 18:06
DX: F20.9 Schizophrenia, unspecified (principal); F31.9 Bipolar disorder, unspecified; F17.210 Nicotine dependence, cigarettes, uncomplicated; Z88.8 Allergy status to other drugs, medicaments and biological substances; Z59.0 Homelessness
CPT/HCPCS: 36415; 80053; 84702; 85025; 96372; 99291; G0480; J1200; J1630; J2060

== ENCOUNTER 2019-04-12 21:03 | Emergency (ER) | payer MEDICAID ==
[~2019-04-12] VITALS: Ht 165.1 cm; Wt 68.2 kg
[~2019-04-12 21:03] MED LIST changes: -BENZ0.5T44 PO; +BENZ1TAB10 PO; +BUPR75 PO; +RISP2 PO
[2019-04-12 23:25] VITALS: BP 122/64
== END 2019-04-12 23:32 | disposition home or self-care (01) ==
LOC: EMS 21:05
DX: F20.0 Paranoid schizophrenia (principal); F17.210 Nicotine dependence, cigarettes, uncomplicated; F31.9 Bipolar disorder, unspecified; F12.90 Cannabis use, unspecified, uncomplicated; Z59.0 Homelessness; Z88.8 Allergy status to other drugs, medicaments and biological substances
CPT/HCPCS: 99406

== ENCOUNTER 2022-09-17 14:17 | Emergency (ER) | payer MEDICAID ==
[~2022-09-17] VITALS: Ht 167.6 cm; Wt 75.0 kg
[2022-09-17 16:35] LABS: BASOPHILS % (AUTO) 0.7 % (0.0-2.0); EOSINOPHILS % (AUTO) 1.7 % (1.0-6.0); HEMATOCRIT 30.3 % (36-46); HEMOGLOBIN 9.5 g/dL (12.0-16.0); LYMPHOCYTES # (AUTO) 2.1 K/uL (1.0-4.8); LYMPHOCYTES % (AUTO) 21.2 % (22.0-44.0); MEAN CORPUSCULAR HEMOGLOBIN 25.8 pg (26.0-34.0); MEAN CORPUSCULAR HGB CONC 31.4 G/dL (31.0-37.0); MEAN CORPUSCULAR VOLUME 82 fL (80-100); MONOCYTES # (AUTO) 0.6 K/uL (0.1-1.0); MONOCYTES % (AUTO) 6.5 % (2.0-9.0); NEUTROPHILS % (AUTO) 69.9 % (40.0-70.0); PLATELET COUNT (AUTO) 409 K/uL (150-450); RED BLOOD CELL COUNT(AUTO) 3.69 MIL/uL (4.00-5.20); RED CELL DISTRIBUTION WIDTH 17.2 % (11.5-14.5)
[2022-09-17 16:40] LABS: COVID AG,FIA SOURCE NASOPHARYNGEAL
[2022-09-17 16:49] VITALS: BP 89/60
[2022-09-17 16:54] LABS: ANION GAP 6 mmol/L (8-16); CALCIUM, TOTAL 8.8 mg/dL (8.8-10.5); CARBON DIOXIDE 30 mmol/L (22-29); CHLORIDE 103 mmol/L (98-107); CREATININE 0.75 mg/dL (0.60-1.30); GLOMERULAR FILTR. RATE CALC > 60 mL/min (>60); GLUCOSE,RANDOM 106 mg/dL (70-110); POTASSIUM 3.3 mmol/L (3.5-5.1); SODIUM SERUM 139 mmol/L (136-145); UREA NITROGEN, BLOOD 6 mg/dL (7-18)
[2022-09-17 16:58] LABS: ALANINE AMINOTRANSFERASE 29 U/L (12-78); ALBUMIN 2.5 g/dL (3.4-5.0); ALKALINE PHOSPHATASE 80 U/L (46-116); ASPARTATE AMINOTRANSFERASE 24 U/L (15-37); BILIRUBIN,TOTAL 0.2 mg/dL (0.1-1.0); HCG,QUANTITATIVE < 1 mIU/mL (0-6); TOTAL PROTEIN, SERUM 5.6 g/dL (6.4-8.2)
[2022-09-17] MEDS: POTASSIUM CHLORIDE 20 MEQ ER TABLET PO ONE (17:20)
[2022-09-21] MEDS ORDERED: PANT-31 PO (12:24)
== END 2022-09-17 17:47 | disposition home or self-care (01) ==
LOC: EMS 14:19
DX: F20.9 Schizophrenia, unspecified (principal); J45.909 Unspecified asthma, uncomplicated; F31.9 Bipolar disorder, unspecified; J44.9 Chronic obstructive pulmonary disease, unspecified; F17.210 Nicotine dependence, cigarettes, uncomplicated; F12.90 Cannabis use, unspecified, uncomplicated; F15.90 Other stimulant use, unspecified, uncomplicated; Z59.00 Homelessness unspecified; Z20.822 Contact with and (suspected) exposure to COVID-19
CPT/HCPCS: 99283; 87426; 80053; 84702; 85025; 36415; G0480; 99284

== ENCOUNTER 2022-10-02 10:55 | Emergency (ER) | payer MEDICAID ==
[~2022-10-02] VITALS: Ht 165.1 cm; Wt 72.7 kg
[~2022-10-02 10:55] MED LIST changes: -BENZ1TAB10 PO; -BUPR75 PO; +PANT-31 PO; -RISP1 PO; -RISP2 PO
[2022-10-02 11:49] LABS: COVID AG,FIA SOURCE NASOPHARYNGEAL
[2022-10-02 12:24] LABS: INFLUENZA TYPE A NEGATIVE FOR TYPE A (NEGATIVE); INFLUENZA TYPE B NEGATIVE FOR TYPE B (NEGATIVE)
[2022-10-02 12:48] LABS: BASOPHILS % (AUTO) 0.8 % (0.0-2.0); EOSINOPHILS % (AUTO) 1.5 % (1.0-6.0); HEMATOCRIT 26.9 % (36-46); HEMOGLOBIN 8.6 g/dL (12.0-16.0); MEAN CORPUSCULAR HEMOGLOBIN 26.6 pg (26.0-34.0); MEAN CORPUSCULAR HGB CONC 31.9 G/dL (31.0-37.0); MEAN CORPUSCULAR VOLUME 83 fL (80-100); MONOCYTES # (AUTO) 0.4 K/uL (0.1-1.0); MONOCYTES % (AUTO) 11.6 % (2.0-9.0); NEUTROPHILS # (AUTO) 1.8 K/uL (1.8-7.7); NEUTROPHILS % (AUTO) 54.1 % (40.0-70.0); PLATELET COUNT (AUTO) 272 K/uL (150-450); RED BLOOD CELL COUNT(AUTO) 3.23 MIL/uL (4.00-5.20); RED CELL DISTRIBUTION WIDTH 18.1 % (11.5-14.5)
[2022-10-02 12:58] LABS: ANION GAP 4 mmol/L (8-16); CALCIUM, TOTAL 8.3 mg/dL (8.8-10.5); CARBON DIOXIDE 29 mmol/L (22-29); CHLORIDE 106 mmol/L (98-107); CREATININE 0.77 mg/dL (0.60-1.30); GLUCOSE,RANDOM 142 mg/dL (70-110); POTASSIUM 3.3 mmol/L (3.5-5.1); SODIUM SERUM 139 mmol/L (136-145); UREA NITROGEN, BLOOD 2 mg/dL (7-18)
[2022-10-02 13:03] LABS: INR 1.1 (0.9-1.1); PROTHROMBIN TIME 11.4 SEC (9.4-11.6)
[2022-10-02 13:05] LABS: GLOMERULAR FILTR. RATE CALC > 60 mL/min (>60)
[2022-10-02 13:06] LABS: B-TYPE NATRIURETIC PEPTIDE 58 pg/mL (0-100)
[2022-10-02 13:12] LABS: ALANINE AMINOTRANSFERASE 11 U/L (12-78); ALKALINE PHOSPHATASE 75 U/L (46-116); ASPARTATE AMINOTRANSFERASE 16 U/L (15-37); BILIRUBIN,TOTAL 0.2 mg/dL (0.1-1.0); THYROID STIMULATING HORMONE 0.62 uIU/mL (0.36-3.74); TOTAL PROTEIN, SERUM 4.4 g/dL (6.4-8.2); VALPROIC ACID < 3 mcg/mL (50-100)
[2022-10-02 13:52] LABS: APPEARANCE,URINE HAZY (CLEAR); BILIRUBIN,URINE NEGATIVE (NEGATIVE); GLUCOSE, URINE (UA) NEGATIVE (NEGATIVE); KETONES,URINE NEGATIVE (NEGATIVE); LEUKOCYTE ESTERASE ,URINE TRACE (NEGATIVE); NITRATE,URINE NEGATIVE (NEGATIVE); OCCULT BLOOD,URINE NEGATIVE (NEGATIVE); PH,URINE 7.5 (5.0-8.0); PROTEIN,URINE NEGATIVE (NEGATIVE); SPECIFIC GRAVITIY, URINE 1.012 (1.003-1.030); UROBILINOGEN,URINE <=1.0 mg/dL (<=1.0)
[2022-10-02] MEDS ORDERED: POTASSIUM CHLORIDE 20 MEQ ER TABLET PO ONE (14:00)
[2022-10-02 14:03] LABS: AMPHET/METH SCREEN,URINE POSITIVE (NEGATIVE); BARBITURATE SCREEN, URINE NEGATIVE (NEGATIVE); BENZODIAZEPINES SCREEN,URINE NEGATIVE (NEGATIVE); CANNABINOID SCREEN,URINE POSITIVE (NEGATIVE); COCAINE SCREEN,URINE NEGATIVE (NEGATIVE); METHADONE SCREEN, URINE NEGATIVE (NEGATIVE); OPIATE SCREEN,URINE NEGATIVE (NEGATIVE); PHENCYCLIDINE SCREEN,URINE NEGATIVE (NEGATIVE)
[2022-10-02 14:06] VITALS: BP 109/63
[2022-10-02 14:17] LABS: BACTERIA,URINE None Seen /HPF (None Seen); RBC,URINE None Seen /HPF (0-2); WBC,URINE 0-2 /HPF (0-5)
[2022-10-02 14:18] LABS: SQUAMOUS EPITHELIAL CELL,UR Many /LPF (None Seen)
== END 2022-10-02 14:42 | disposition home or self-care (01) ==
LOC: EMS 11:03
DX: F20.9 Schizophrenia, unspecified (principal); F15.10 Other stimulant abuse, uncomplicated; J45.909 Unspecified asthma, uncomplicated; F31.9 Bipolar disorder, unspecified; J44.9 Chronic obstructive pulmonary disease, unspecified; F17.210 Nicotine dependence, cigarettes, uncomplicated; F12.90 Cannabis use, unspecified, uncomplicated; Z59.00 Homelessness unspecified; Z98.890 Other specified postprocedural states; Z20.822 Contact with and (suspected) exposure to COVID-19
CPT/HCPCS: 99285; 71045; 87426; 80053; 80164; 83880; 84443; 84484; 85025; 85610; 85730; 87804; 36415; 93005; 80307; 81001; G0480

== ENCOUNTER 2022-10-29 04:24 | Emergency (ER) | payer MEDICAID ==
[~2022-10-29] VITALS: Ht 165.1 cm; Wt 63.6 kg
[2022-10-29] MEDS ORDERED: DiphenhydrAMINE HCL 50 MG/ML VIAL IM ONE (04:30)
[2022-10-29] MEDS ORDERED: LORazepam 2 MG/ML VIAL IM ONE (04:30)
[2022-10-29 05:17] LABS: COVID AG,FIA SOURCE NASOPHARYNGEAL
[2022-10-29 05:21] LABS: BASOPHILS % (AUTO) 0.7 % (0.0-2.0); EOSINOPHILS % (AUTO) 0.5 % (1.0-6.0); HEMATOCRIT 27.2 % (36-46); HEMOGLOBIN 8.4 g/dL (12.0-16.0); LYMPHOCYTES # (AUTO) 1.5 K/uL (1.0-4.8); LYMPHOCYTES % (AUTO) 19.1 % (22.0-44.0); MEAN CORPUSCULAR HEMOGLOBIN 25.5 pg (26.0-34.0); MEAN CORPUSCULAR VOLUME 82 fL (80-100); MONOCYTES # (AUTO) 0.7 K/uL (0.1-1.0); MONOCYTES % (AUTO) 9.2 % (2.0-9.0); NEUTROPHILS # (AUTO) 5.7 K/uL (1.8-7.7); NEUTROPHILS % (AUTO) 70.5 % (40.0-70.0); PLATELET COUNT (AUTO) 395 K/uL (150-450); RED BLOOD CELL COUNT(AUTO) 3.31 MIL/uL (4.00-5.20); RED CELL DISTRIBUTION WIDTH 19.4 % (11.5-14.5)
[2022-10-29 05:31] LABS: ANION GAP 5 mmol/L (8-16); CALCIUM, TOTAL 8.9 mg/dL (8.8-10.5); CARBON DIOXIDE 29 mmol/L (22-29); CHLORIDE 101 mmol/L (98-107); CREATININE 0.67 mg/dL (0.60-1.30); GLUCOSE,RANDOM 92 mg/dL (70-110); SODIUM SERUM 135 mmol/L (136-145); UREA NITROGEN, BLOOD 6 mg/dL (7-18)
[2022-10-29 05:33] LABS: GLOMERULAR FILTR. RATE CALC > 60 mL/min (>60)
[2022-10-29 05:57] LABS: ALANINE AMINOTRANSFERASE 19 U/L (12-78); ALBUMIN 2.7 g/dL (3.4-5.0); ALKALINE PHOSPHATASE 90 U/L (46-116); ASPARTATE AMINOTRANSFERASE 21 U/L (15-37); BILIRUBIN,TOTAL 0.4 mg/dL (0.1-1.0); CREATINE KINASE, TOTAL ONLY 86 U/L (26-192); THYROID STIMULATING HORMONE 0.72 uIU/mL (0.36-3.74); TOTAL PROTEIN, SERUM 5.8 g/dL (6.4-8.2)
[2022-10-29] MEDS ORDERED: PROPOFOL 1000 MG/ISO-OSM 100 ML IV PRN (12:45)
[2022-10-29] MEDS ORDERED: RisperiDONE 1 MG TABLET PO ONE (13:15)
[2022-10-29] MEDS ORDERED: BENZTROPINE MESYLATE 2 MG TABLET PO ONE (13:15)
[2022-10-29 13:59] VITALS: BP 126/84
== END 2022-10-29 14:01 | disposition home or self-care (01) ==
LOC: EMS 04:26
DX: F15.10 Other stimulant abuse, uncomplicated (principal); F20.9 Schizophrenia, unspecified; R20.2 Paresthesia of skin; F17.210 Nicotine dependence, cigarettes, uncomplicated; F12.90 Cannabis use, unspecified, uncomplicated; J45.909 Unspecified asthma, uncomplicated; J44.9 Chronic obstructive pulmonary disease, unspecified; F31.9 Bipolar disorder, unspecified; D64.9 Anemia, unspecified; Z88.5 Allergy status to narcotic agent; Z88.8 Allergy status to other drugs, medicaments and biological substances; Z20.822 Contact with and (suspected) exposure to COVID-19; Z98.890 Other specified postprocedural states
CPT/HCPCS: 99284; 87426; 80053; 82550; 84443; 85025; 36415; 96372; G0480; J1200; J2060

== ENCOUNTER 2022-10-31 05:58 | Emergency (ER) | payer MEDICAID ==
[~2022-10-31] VITALS: Ht 165.1 cm; Wt 64.0 kg
[2022-10-31 06:56] LABS: BASOPHILS % (AUTO) 0.9 % (0.0-2.0); EOSINOPHILS % (AUTO) 0.7 % (1.0-6.0); HEMATOCRIT 27.6 % (36-46); HEMOGLOBIN 8.8 g/dL (12.0-16.0); LYMPHOCYTES # (AUTO) 1.8 K/uL (1.0-4.8); LYMPHOCYTES % (AUTO) 28.9 % (22.0-44.0); MEAN CORPUSCULAR HEMOGLOBIN 25.9 pg (26.0-34.0); MEAN CORPUSCULAR HGB CONC 31.9 G/dL (31.0-37.0); MEAN CORPUSCULAR VOLUME 81 fL (80-100); MONOCYTES # (AUTO) 0.7 K/uL (0.1-1.0); MONOCYTES % (AUTO) 10.7 % (2.0-9.0); NEUTROPHILS # (AUTO) 3.6 K/uL (1.8-7.7); NEUTROPHILS % (AUTO) 58.8 % (40.0-70.0); PLATELET COUNT (AUTO) 427 K/uL (150-450); RED BLOOD CELL COUNT(AUTO) 3.41 MIL/uL (4.00-5.20); RED CELL DISTRIBUTION WIDTH 19.6 % (11.5-14.5)
[2022-10-31 07:06] LABS: ANION GAP 6 mmol/L (8-16); CALCIUM, TOTAL 9.1 mg/dL (8.8-10.5); CARBON DIOXIDE 28 mmol/L (22-29); CHLORIDE 102 mmol/L (98-107); CREATININE 0.79 mg/dL (0.60-1.30); GLOMERULAR FILTR. RATE CALC > 60 mL/min (>60); GLUCOSE,RANDOM 98 mg/dL (70-110); POTASSIUM 3.3 mmol/L (3.5-5.1); SODIUM SERUM 136 mmol/L (136-145); UREA NITROGEN, BLOOD 10 mg/dL (7-18)
[2022-10-31 07:19] LABS: ALANINE AMINOTRANSFERASE 21 U/L (12-78); ALBUMIN 2.9 g/dL (3.4-5.0); ALKALINE PHOSPHATASE 93 U/L (46-116); ASPARTATE AMINOTRANSFERASE 24 U/L (15-37); BILIRUBIN,TOTAL 0.4 mg/dL (0.1-1.0); HCG,QUANTITATIVE < 1 mIU/mL (0-6); TOTAL PROTEIN, SERUM 6.4 g/dL (6.4-8.2)
[2022-10-31 09:14] VITALS: BP 117/67
[2022-11-05] MEDS ORDERED: CEPH-558 PO (14:48)
[2022-11-05] MEDS ORDERED: RISP1TAB98 PO (14:48)
[2022-11-05] MEDS ORDERED: BACTDSB PO (14:48)
== END 2022-10-31 10:26 | disposition home or self-care (01) ==
LOC: EMS 05:59
DX: F15.259 Other stimulant dependence with stimulant-induced psychotic disorder, unspecified (principal); D64.9 Anemia, unspecified; E87.6 Hypokalemia; J45.909 Unspecified asthma, uncomplicated; F31.9 Bipolar disorder, unspecified; J44.9 Chronic obstructive pulmonary disease, unspecified; F20.9 Schizophrenia, unspecified; F17.210 Nicotine dependence, cigarettes, uncomplicated; F12.90 Cannabis use, unspecified, uncomplicated; Z59.00 Homelessness unspecified; Z98.890 Other specified postprocedural states; Z88.8 Allergy status to other drugs, medicaments and biological substances
CPT/HCPCS: 99283; 80053; 84702; 85025; G0480

== ENCOUNTER 2022-12-15 06:05 | Emergency (ER) | payer OTHER ==
[~2022-12-15] VITALS: Ht 165.1 cm; Wt 72.0 kg
[~2022-12-15 06:05] MED LIST changes: +BENZ0.5T49 PO; +OLAN5TAB52 PO; -PANT-31 PO; +RISP1TAB89 PO; +RISP1TAB98 PO
[2022-12-15 09:31] LABS: BASOPHILS % (AUTO) 0.4 % (0.0-2.0); EOSINOPHILS % (AUTO) 2.4 % (1.0-6.0); HEMATOCRIT 25.4 % (36-46); LYMPHOCYTES # (AUTO) 1.5 K/uL (1.0-4.8); LYMPHOCYTES % (AUTO) 31.2 % (22.0-44.0); MEAN CORPUSCULAR HGB CONC 31.4 G/dL (31.0-37.0); MEAN CORPUSCULAR VOLUME 77 fL (80-100); MONOCYTES # (AUTO) 0.5 K/uL (0.1-1.0); MONOCYTES % (AUTO) 9.5 % (2.0-9.0); NEUTROPHILS # (AUTO) 2.7 K/uL (1.8-7.7); NEUTROPHILS % (AUTO) 56.5 % (40.0-70.0); PLATELET COUNT (AUTO) 342 K/uL (150-450); RED BLOOD CELL COUNT(AUTO) 3.31 MIL/uL (4.00-5.20); RED CELL DISTRIBUTION WIDTH 19.9 % (11.5-14.5)
[2022-12-15 09:35] LABS: COVID AG,FIA SOURCE NASAL SWAB
[2022-12-15 09:41] LABS: ANION GAP 8 mmol/L (8-16); CALCIUM, TOTAL 9.1 mg/dL (8.8-10.5); CARBON DIOXIDE 28 mmol/L (22-29); CHLORIDE 103 mmol/L (98-107); CREATININE 0.74 mg/dL (0.60-1.30); GLOMERULAR FILTR. RATE CALC > 60 mL/min (>60); GLUCOSE,RANDOM 85 mg/dL (70-110); POTASSIUM 3.2 mmol/L (3.5-5.1); SODIUM SERUM 139 mmol/L (136-145)
[2022-12-15 09:47] LABS: ALANINE AMINOTRANSFERASE 16 U/L (12-78); ALBUMIN 2.9 g/dL (3.4-5.0); ALKALINE PHOSPHATASE 61 U/L (46-116); ASPARTATE AMINOTRANSFERASE 24 U/L (15-37); BILIRUBIN,TOTAL 0.2 mg/dL (0.1-1.0); TOTAL PROTEIN, SERUM 5.9 g/dL (6.4-8.2)
[2022-12-15 10:20] LABS: INFLUENZA TYPE A NEGATIVE FOR TYPE A (NEGATIVE); INFLUENZA TYPE B NEGATIVE FOR TYPE B (NEGATIVE)
[2022-12-15 11:52] VITALS: BP 116/63
== END 2022-12-15 12:13 | disposition home or self-care (01) ==
LOC: EMS 06:06
DX: R53.1 Weakness (principal); J45.909 Unspecified asthma, uncomplicated; F31.9 Bipolar disorder, unspecified; J44.9 Chronic obstructive pulmonary disease, unspecified; F20.9 Schizophrenia, unspecified; F17.210 Nicotine dependence, cigarettes, uncomplicated; F12.90 Cannabis use, unspecified, uncomplicated; F15.90 Other stimulant use, unspecified, uncomplicated; Z59.00 Homelessness unspecified; Z88.8 Allergy status to other drugs, medicaments and biological substances; Z20.822 Contact with and (suspected) exposure to COVID-19
CPT/HCPCS: 80053; 85025; 87804; 99283